=== PATIENT | female | born 1970 | race African-American/Black ===

== ENCOUNTER 2017-08-11 03:21 | Emergency (ER) | payer OTHER ==
[~2017-08-11] VITALS: Ht 157.5 cm; Wt 117.9 kg
[2017-08-11] MEDS ORDERED: FAMOTIDINE (10MG/ML) 2ML VL IV ONE (05:00)
[2017-08-11] MEDS ORDERED: diphenhdrAMINE HCL 50 MG/1 ML VL IV ONE (05:00)
[2017-08-11] MEDS ORDERED: methylPREDNISolone SOD SUCC 125 MG/2 ML VL IV ONE (05:00)
[2017-08-11 05:40] VITALS: BP 107/59
== END 2017-08-11 05:26 | disposition home or self-care (01) ==
LOC: ER 03:28
DX: T78.40XA Allergy, unspecified, initial encounter (principal); L29.9 Pruritus, unspecified; F41.9 Anxiety disorder, unspecified; Z88.2 Allergy status to sulfonamides
CPT/HCPCS: 96374; 96375; 99284; J1200; J2930; J3490

== ENCOUNTER 2017-08-12 02:21 | Emergency (ER) | payer OTHER ==
[~2017-08-12] VITALS: Ht 157.5 cm; Wt 90.7 kg
[2017-08-12] MEDS ORDERED: EPINEPHrine HCL 1 MG/1 ML AMP ONE (02:30)
[2017-08-12] MEDS ORDERED: methylPREDNISolone SOD SUCC 125 MG/2 ML VL ONE (02:30)
[2017-08-12] MEDS ORDERED: diphenhdrAMINE HCL 50 MG/1 ML VL ONE (02:30)
[2017-08-12] MEDS ORDERED: diphenhdrAMINE HCL 50 MG/1 ML VL IV ONE ×2 (02:45→07:15)
[2017-08-12] MEDS ORDERED: EPINEPHrine HCL 1 MG/1 ML AMP SC ONE ×2 (02:45→07:15)
[2017-08-12] MEDS ORDERED: methylPREDNISolone SOD SUCC 125 MG/2 ML VL IV ONE (02:45)
[2017-08-12 07:30] VITALS: BP 116/89
== END 2017-08-12 10:30 | disposition home or self-care (01) ==
LOC: ER 02:22
DX: T78.40XA Allergy, unspecified, initial encounter (principal); Z88.2 Allergy status to sulfonamides
CPT/HCPCS: 96372; 96374; 96375; 96376; 99284; J0171; J1200; J2930